=== PATIENT | female | born 1995 | race Caucasian/White ===

== ENCOUNTER 2017-02-05 04:34 | Emergency (ER) | payer SELFPAY ==
[~2017-02-05] VITALS: Ht 160 cm; Wt 56.3 kg
[2017-02-05] MEDS ORDERED: CETI10TA24 PO (04:59)
[2017-02-05 05:28] LABS: DAU SCREEN DISCLAIMER
[2017-02-05 05:40] LABS: PATH.CAST-FLAG NOT PRESENT; SPERM-FLAG NOT PRESENT; SRC-FLAG NOT PRESENT; XTAL-FLAG NOT PRESENT; YLC-FLAG NOT PRESENT
[2017-02-05 06:10] LABS: BLOOD UREA NITROGEN 8 mg/dL (7-18)
[2017-02-05 06:16] LABS: ASPARTATE AMINO TRANSFERASE 13 U/L (15-37)
[2017-02-05 06:23] LABS: ACETAMINOPHEN < 2 mcg/mL (10-30)
[2017-02-05 07:14] VITALS: BP 98/46
== END 2017-02-05 08:15 | disposition home or self-care (01) ==
LOC: ED 05:14
DX: Z76.1 Encounter for health supervision and care of foundling (principal); F32.9 Major depressive disorder, single episode, unspecified
CPT/HCPCS: 36415; 80053; 80307; 80329; 81001; 84703; 85025; 87086; 99284; G0480